=== PATIENT | female | born 1995 | race Caucasian/White ===

== ENCOUNTER → 2016-11-03 | Outpatient (CLI) | payer BC ==
[~2016-11-03] MED LIST: BCPILLS PO; CEPH500C PO; CEPH500C2 PO; SULF800T23 PO
[2016-11-07 07:06] LABS: CHLAMYDIA TRACH RNA*** DETECTED (NOT DETECTED); GC (NEIS GONORRHOEAE)RNA** NOT DETECTED (NOT DETECTED)
== END | disposition home or self-care (01) ==
LOC: C.LABSPEC 17:20
PROVIDERS: ATTEND Physician Assistant
DX: Z01.419 Encounter for gynecological examination (general) (routine) without abnormal findings (principal)

== ENCOUNTER → 2016-11-03 | Outpatient (CLI) | payer BC | END | disposition home or self-care (01) | LOC: C.PAPS 17:55 | PROVIDERS: ATTEND Physician Assistant | DX: Z01.419 Encounter for gynecological examination (general) (routine) without abnormal findings (principal) ==

== ENCOUNTER 2017-01-18 14:47 | Emergency (ER) | payer BC ==
[~2017-01-18] VITALS: Ht 170.2 cm; Wt 68.1 kg
[2017-01-18 14:55] VITALS: TEMP 36.8; Ht 170.2 cm; Wt 68.1 kg
[2017-01-18] MEDS ORDERED: BCPILLS PO (15:02)
[2017-01-18] MEDS ORDERED: SODIUM CHLORIDE 0.9% 1000ML 1,000 ML IV STA (15:08)
[2017-01-18] MEDS ORDERED: KETOROLAC TROMETHAMINE 30 MG/ML VIAL IV STA (15:08)
[2017-01-18] MEDS ORDERED: SULFAMETHOXAZOLE/TRIMETHOPRIM DS 800/160MG TAB PO STA (15:08)
[2017-01-18] MEDS ORDERED: CEFAZOLIN SOD 1000MG/55 ML D5W IV STA (15:08)
--- NOTE | 2017-01-18 15:34 | EMERGENCY ROOM VISIT NOTE ---
ED Visit Note First contact with patient: 15:03 CHIEF COMPLAINT: Infection of the right ankle HISTORY OF PRESENT ILLNESS: This 21-year-old female patient presents to the emergency department complaining of right ankle pain, swelling, and redness. Patient states that she cut the back of her ankle a week ago on a piece of glass when she was at work. She states that she cleaned out the wound and applied a bandage, and states that her cut has been healing well until yesterday when someone stepped on the back of her ankle causing a cut to reach open and bleed. She states she washed it out with alcohol last night. Today, the area has become red, warm, and very painful, increased pain with walking on the ankle. The patient denies fever, chills, nausea, or loss of appetite. Movement of the right ankle is somewhat decreased because of the pain. The patient's tetanus shot is up to date. REVIEW OF SYSTEMS: A review of systems was performed with positives and pertinent negatives listed in the history of present illness. All other systems were reviewed and are negative. ALLERGIES: No known allergies MEDICATIONS: control pill PMH: No significant past medical or surgical history. SOCIAL HISTORY: Lives at home. She denies tobacco, alcohol, recreational drug use. PHYSICAL EXAM: Vital Signs: Reviewed Nurse's notes, afebrile, vital signs stable. GENERAL: Pleasant and cooperative, in no acute distress, is non toxic in appearance, well-developed, well-nourished. SKIN: The right posterior and lateral ankle is red, warm, very tender, and swollen. There is no lymphangitic streaking. There is no discharge. There is no fluctuance. There is induration. There is a small abrasion to the posterior ankle just above the heel with scabbing, very tender to palpation, no drainage noted. HEART: Regular rate and rhythm without murmur, gallop, or rub. LUNGS: Clear to auscultation bilaterally without wheezes, rales, or rhonchi. NEURO: Alert and oriented to person, place, and time. Normal sensation to light and sharp touch. Capillary reflex less than 2 seconds. Peripheral pulses 2 + bilaterally. IMAGING: RIGHT ANKLE MIN 3 VIEWS ROUTINE CLINICAL HISTORY: 21 years-old Female presenting with cellulitis, laceration, eval FB Right. TECHNIQUE: Frontal, mortise, and lateral views of the right ankle were obtained. COMPARISON: None. FINDINGS: No acute fracture, malalignment, or radiopaque foreign body. Ankle mortise intact. Mild soft tissue swelling over the lateral malleolus may be present. No significant degenerative change. No gross evidence of an ankle joint effusion. The reported laceration is not radiographically apparent. IMPRESSION: No radiopaque foreign body or acute osseous injury of the ankle. EMERGENCY DEPARTMENT COURSE: I examined the patient. Differential diagnosis includes cellulitis, retained foreign body, abscess, osteomyelitis, ankle sprain , fracture. My exam findings seem most consistent with a developing cellulitis. Orders were placed at bedside for labs, urine , IV fluids for hydration, IV Ancef and PO Bactrim to treat for cellulitis. Labs reviewed and do reveal leukocytosis, no other acute abnormalities. X-ray is unremarkable , specifically no evidence of retained FB. Patient reports improved pain after receiving IV Toradol, the area of cellulitis appears slightly improved after receiving antibiotics. The cellulitic area was marked with a skin marker, and the patient was instructed to return to the emergency department in 1-2 days for reassessment of her area of cellulitis, as she does not have a PCP to follow up with. She was also given strict return precautions if her symptoms should worsen in any way. Patient verbalized understanding and agrees to do this. Patient was provided with crutches for comfort. She was discharged home in stable condition. Medication Reconciliation: I attest that I have personally reviewed the patient' s current medication list. Blood pressure screening: The patient was found to have normal blood pressure on screening and does not require follow-up for repeat blood pressure check. I discussed the patient with Dr. Wells, who agrees with my assessment and plan. Current/Historical Medications Scheduled Control Pills ( Control Pills), 1 TAB PO DAILY Cephalexin Monohydrate (Keflex), 500 MG PO QID Sulfa/Trimethoprim (Bactrim Ds 800MG/160MG), 1 TAB PO BID Allergies Coded Allergies: No Known Allergies (Unverified , 01/18/17) Vital Signs Date Time Temp Pulse Resp B/P (MAP) Pulse Ox O2 Delivery O2 Flow Rate FiO2 01/18/17 19:17 82 19 121/80 98 01/18/17 14:55 36.8 74 18 132/79 96 Room Air Laboratory Results 01/18/17 15:27 Red Blood Count 4.23, Mean Corpuscular Volume 92.2, Mean Corpuscular Hemoglobin 30.7, Mean Corpuscular Hemoglobin Concent 33.3, Mean Platelet Volume 9.3, Neutrophils (%) (Auto) 79.4, Lymphocytes (%) (Auto) 11.0, Monocytes (%) (Auto) 8.3, Eosinophils (%) (Auto) 1.0, Basophils (%) (Auto) 0.2, Neutrophils # (Auto) 10.73, Lymphocytes # (Auto) 1.49, Monocytes # (Auto) 1.13, Eosinophils # (Auto) 0.14, Basophils # (Auto) 0.03 01/18/17 15:27 Test 01/18/17 15:08 01/18/17 15:27 White Blood Count 13.54 K/uL (4.8-10.8) Red Blood Count 4.23 M/uL (4.2-5.4) Hemoglobin 13.0 g/dL (12.0-16.0) Hematocrit 39.0 % (37-47) Mean Corpuscular Volume 92.2 fL (80-100) Mean Corpuscular Hemoglobin 30.7 pg (25-34) Mean Corpuscular Hemoglobin Concent 33.3 g/dl (32-36) Platelet Count 288 K/uL (130-400) Mean Platelet Volume 9.3 fL (7.4-10.4) Neutrophils (%) (Auto) 79.4 % Lymphocytes (%) (Auto) 11.0 % Monocytes (%) (Auto) 8.3 % Eosinophils (%) (Auto) 1.0 % Basophils (%) (Auto) 0.2 % Neutrophils # (Auto) 10.73 K/uL (1.4-6.5) Lymphocytes # (Auto) 1.49 K/uL (1.2-3.4) Monocytes # (Auto) 1.13 K/uL (0.11-0.59) Eosinophils # (Auto) 0.14 K/uL (0-0.5) Basophils # (Auto) 0.03 K/uL (0-0.2) RDW Standard Deviation 42.9 fL (36.4-46.3) RDW Coefficient of Variation 12.7 % (11.5-14.5) Immature Granulocyte % (Auto) 0.1 % Immature Granulocyte # (Auto) 0.02 K/uL (0.00-0.02) Anion Gap 7.0 mmol/L (3-11) Est Creatinine Clear Calc Drug Dose 106.4 ml/min Estimated GFR () 120.4 Estimated GFR (Non- 103.9 BUN/Creatinine Ratio 19.9 (10-20) Calcium Level 8.8 mg/dl (8.5-10.1) Medications Administered Medications (Trade) Dose Ordered Sig/Shira Route Start Time Stop Time Status Last Admin Dose Admin Cefazolin Sodium (Ancef 1000mg/55 ml D5W) 1,000 mg NOW STAT IV 01/18/17 15:08 01/18/17 15:11 DC 01/18/17 15:25 1,000 MG Ketorolac Tromethamine (Toradol Inj) 15 mg NOW STAT IV 01/18/17 15:08 01/18/17 15:11 DC 01/18/17 15:26 15 MG Sodium Chloride 1,000 ml @ 999 mls/hr Q1H1M STAT IV 01/18/17 15:08 01/18/17 16:08 DC 01/18/17 15:27 999 MLS/HR Trimethoprim/ Sulfamethoxazole (Septra Ds 800/ 160MG Tab) 1 tab NOW STAT PO 01/18/17 15:08 01/18/17 15:12 DC 01/18/17 16:00 1 TAB Cephalexin Monohydrate (Keflex 500MG Home Pack) 1 homepack NOW ONCE PO 01/18/17 18:30 01/18/17 18:31 DC 01/18/17 19:08 1 HOMEPACK Trimethoprim/ Sulfamethoxazole (Sulfameth/ Trimeth Ds 800/ 160MG Home Pack) 1 homepack UD ONCE PO 01/18/17 18:30 01/18/17 18:31 DC 01/18/17 19:08 1 HOMEPACK Departure Information Impression Primary Impression: Cellulitis of right ankle Dispostion Home / Self-Care Condition GOOD Prescriptions Sulfa/Trimethoprim (Bactrim Ds 800MG/160MG) Tab 1 TAB PO BID for 9 Days, #18 TAB Prov: Mariann Pacheco, KEANU 01/18/17 Cephalexin Monohydrate (Keflex) 500 Mg Cap 500 MG PO QID for 9 Days, #36 CAP Prov: Mariann Pacheco CRNP 01/18/17 Referrals No Doctor, Assigned (PCP) Patient Instructions ED Infec Skin Cellulitis, [facility] Additional Instructions You were seen in the Emergency Department for cellulitis. You have been prescribed Keflex and Bactrim to be taken for 10 days. Take as prescribed. Both of these medications are antibiotics. Stop these medications and contact a medical provider if you were to develop any significant adverse side effects including: wheezing, shortness of breath, passing out, vomiting, or a diffuse rash. Always take antibiotics as directed and COMPLETE the ENTIRE course regardless of the improvement of your symptoms. Look for signs of worsening infection of the wound including: increased pain, swelling, foul discharge, streaking, or fevers/chills/feeling ill. If any of these are noticed you should return to the Emergency Department for further assessment and treatment. For pain control, you can use the following [id number] medicines (if >12 yo): - Extra strength (500mg/tab) Tylenol (acetaminophen) 1-2 tabs every 6-8 hours as needed. Do not exceed 6 tablets in a 24 hour period. Avoid taking more than 3 grams (3000 mg) of Tylenol per day. This includes any other sources of acetaminophen you may take on a regular basis. - Regular strength (200 mg/tab) Advil (ibuprofen) 1-2 tabs every 4-6 hours as needed. Do not exceed a dose of 3200 mg per day. Apply warm compresses to the area to help with pain and also to help improve the infection. Keep the ankle elevated as much as possible to help reduce swelling. Use the crutches to stay off of the ankle for improve comfort. Please return to the emergency department in 1-2 days for recheck, or sooner for worsening symptoms.
[2017-01-18 15:37] LABS: BASO % 0.2 %; BASO ABS # 0.03 K/uL (0-0.2); COMPLETE YES; IG% 0.1 %; LYMPH ABS # 1.49 K/uL (1.2-3.4); MEAN CELL VOLUME 92.2 fL (80-100); MEAN CORPUSCULAR HEMOGLOBIN 30.7 pg (25-34); MEAN CORPUSCULAR HGB CONC 33.3 g/dl (32-36); MEAN PLATELET VOLUME 9.3 fL (7.4-10.4); MONO % 8.3 %; NEUT % 79.4 %; PLATELET COUNT 288 K/uL (130-400); RED BLOOD COUNT 4.23 M/uL (4.2-5.4); WHITE BLOOD COUNT 13.54 K/uL (4.8-10.8)
[2017-01-18 15:53] LABS: BUN/CREATININE RATIO 19.9 (10-20); CALCIUM 8.8 mg/dl (8.5-10.1); CREATININE 0.8 mg/dl (0.60-1.20); POTASSIUM 3.6 mmol/L (3.5-5.1)
--- NOTE | 2017-01-18 16:26 | DIAGNOSTIC IMAGING REPORT ---
RIGHT ANKLE MIN 3 VIEWS ROUTINE CLINICAL HISTORY: 21 years-old Female presenting with cellulitis, laceration, eval FB Right. TECHNIQUE: Frontal, mortise, and lateral views of the right ankle were obtained. COMPARISON: None. FINDINGS: No acute fracture, malalignment, or radiopaque foreign body. Ankle mortise intact. Mild soft tissue swelling over the lateral malleolus may be present. No significant degenerative change. No gross evidence of an ankle joint effusion. The reported laceration is not radiographically apparent. IMPRESSION: No radiopaque foreign body or acute osseous injury of the ankle. Electronically signed by: Tony Silvestre M.D. 01/18/2017 4:24 PM Dictated Date/Time: 01/18/2017 4:23 PM
[2017-01-18] MEDS ORDERED: SULF800T23 PO (18:30)
[2017-01-18] MEDS ORDERED: SEPTRA DS HOME PACK 1 EA VIAL PO ONE (18:30)
[2017-01-18] MEDS ORDERED: CEPHALEXIN 500MG HOME PACK 1 EA BTL PO ONE (18:30)
[2017-01-18] MEDS ORDERED: CEPH500C PO (18:30)
[2017-01-18 19:17] VITALS: BP 121/80; PULSE 82; O2SAT 98
[2017-01-19] MEDS ORDERED: CEPH500C2 PO (15:49)
[2017-01-19] MEDS ORDERED: SULF800T23 PO (15:49)
== END 2017-01-18 19:15 | disposition home or self-care (01) ==
LOC: C.EDB 14:49 → C.EDC 19:15
DX: L03.115 Cellulitis of right lower limb (principal)

== ENCOUNTER 2017-01-19 15:31 | Emergency (ER) | payer BC ==
[~2017-01-19] VITALS: Ht 170.2 cm; Wt 65.3 kg
[~2017-01-19 15:31] MED LIST changes: -CEPH500C2 PO
[2017-01-19 15:32] VITALS: TEMP 36.8; Ht 170.2 cm; Wt 65.3 kg
[2017-01-19] MEDS ORDERED: SULF800T23 PO (15:49)
[2017-01-19] MEDS ORDERED: CEPH500C2 PO (15:49)
--- NOTE | 2017-01-19 15:52 | EMERGENCY ROOM VISIT NOTE ---
History First contact with patient: 15:37 Chief Complaint: WOUND RECHECK Stated Complaint: INFECTED ANKLE Nursing Triage Summary: Patient states she was here yesterday and is to be seen today for a wound recheck. Injury to back of ankle approx 1 week ago, swelling started 2 days ago. Seen here yesterday and prescribed antibiotics. Redness, swelling to ankle. History of Present Illness The patient is a 21 year old female who presents to the Emergency Room for recheck of a right ankle infection. The patient states that she was seen here yesterday for redness and swelling of her ankle and was diagnosed with cellulitis. She initially had an injury 1 week ago and states that the wound reopened 2 days ago and she had developed swelling and pain. She reports that her pain is improving. She rates her discomfort a 5/10. She has been taking the antibiotics as prescribed. She denies any fevers/chills. Review of Systems A complete 10 point review of systems was reviewed with the patient with pertinent positives and negatives as per history of present illness. All else were negative. Social History Smoking Status: Never Smoker Current/Historical Medications Scheduled Control Pills ( Control Pills), 1 TAB PO DAILY Cephalexin Monohydrate (Keflex), 500 MG PO QID Sulfa/Trimethoprim (Bactrim Ds 800MG/160MG), 1 TAB PO BID Physical Exam Vital Signs Date Time Temp Pulse Resp B/P (MAP) Pulse Ox O2 Delivery O2 Flow Rate FiO2 01/19/17 15:55 100 16 120/80 100 01/19/17 15:32 36.8 106 16 120/80 100 Room Air Physical Exam VITALS: Vitals are noted on the nurse's note and reviewed by myself. Vital signs stable. GENERAL: This is a 21-year-old female, in no acute distress, nondiaphoretic, well-developed well-nourished. SKIN: There is erythema and warmth surrounding a small healing laceration to the posterior right ankle. The erythema does not extend past the marked edges. MUSCULOSKELETAL: Full range of motion of the right ankle. NEURO: Patient was alert and oriented to person place and time. Medical Decision & Procedures Medical Decision The patient was evaluated as above. Previous records were reviewed. She was seen here for a right ankle cellulitis which appears to be improving on exam. She is taking her antibiotics as prescribed. She was encouraged to continue these and should return for a recheck if she does not have significant improvement of her symptoms. She was also advised to return if she develops fevers, worsening redness or swelling of or any other new/concerning symptoms. She verbalized understanding of my assessment and treatment plan and was discharged home in good condition. Medication Reconcilliation Current Medication List: was personally reviewed by me Blood Pressure Screening Patient's blood pressure: Normal blood pressure Impression Primary Impression: Encounter for wound re-check Departure Information Dispostion Home / Self-Care Condition GOOD Referrals No Doctor, Assigned (PCP) Patient Instructions My [facility] Additional Instructions Continue antibiotics as prescribed. Follow-up with the primary care provider or return here in one to 2 days if you are not seeing any improvement of the infection. Return immediately for fevers, worsening redness, worsening swelling, or any other new/concerning symptoms.
[2017-01-19 15:55] VITALS: BP 120/80; PULSE 100; O2SAT 100
== END 2017-01-19 16:03 | disposition home or self-care (01) ==
LOC: C.EDB 15:32 → C.EDD 16:03
DX: L03.116 Cellulitis of left lower limb (principal)

== ENCOUNTER → 2017-05-28 | Outpatient (CLI) | payer BC ==
[~2017-05-28] MED LIST changes: -CEPH500C PO; +CEPH500C2 PO
== END | disposition home or self-care (01) ==
LOC: C.LABSPEC 13:32
PROVIDERS: ATTEND Physician Assistant
DX: Z11.3 Encounter for screening for infections with a predominantly sexual mode of transmission (principal)